=== PATIENT | female | born 1955 | race American Indian/Alaskan Native ===

== ENCOUNTER 2017-01-22 10:02 | Emergency (ER) | payer OTHER ==
[2017-01-22 11:17] LABS: Basophils % (Auto) 0.5 % (0.0-1.8); Eosinophils % (Auto) 3.5 % (0.0-4.3); Hematocrit 41.1 % (30.3-42.9); Hemoglobin 14.1 gm/dl (10.1-14.3); Mean Corpuscular HGB Conc 34 % (30-34); Mean Corpuscular Hemoglobin 31 pg (28-32); Mean Corpuscular Volume 90 fl (79-97); Platelet Count 136 K/mm3 (140-440); Red Blood Count 4.57 M/mm3 (3.65-5.03)
[2017-01-22 11:31] LABS: Anion Gap 16 mmol/L; Blood Urea Nitrogen 18 mg/dL (7-17); Calcium 9.5 mg/dL (8.4-10.2); Carbon Dioxide 26 mmol/L (22-30); Chloride 103.4 mmol/L (98-107); Glucose 124 mg/dL (65-100); Sodium 141 mmol/L (137-145)
[2017-01-22 12:49] LABS: Bacteria,Urine 1+ /HPF (Negative); Bilirubin,Urine NEG (Negative); Blood,Urine NEG (Negative); Ketones,Urine NEG (Negative); Leukocyte Esterase,Urine MOD (Negative); Nitrite,Urine NEG (Negative); Protein,Urine <15 mg/dL mg/dL (Negative); Urobilinogen,Urine < 2.0 mg/dL (<2.0)
[2017-01-22] MEDS ORDERED: REGLAN IV ONE (13:45)
[2017-01-22] MEDS ORDERED: NACL 0.9% 500 ML 500 ML IV ONE (13:45)
--- NOTE | 2017-01-22 13:47 | Emergency Department Report ---
ED General Adult HPI - General Chief complaint: Nausea/Vomiting/Diarrhea Stated complaint: NAUSEA/VOMITING Time Seen by Provider: 01/22/17 13:30 Source: patient, EMS Mode of arrival: Stretcher Limitations: No Limitations - Related Data Allergies Allergy/AdvReac Type Severity Reaction Status Date / Time meperidine HCl [From Demerol] AdvReac Itching Unverified 06/20/13 09:40 ED Review of Systems ROS: Stated complaint: NAUSEA/VOMITING Other details as noted in HPI ED Past Medical Hx - Past Medical History Previous Medical History?: Yes Hx Hypertension: Yes Hx CVA: Yes - Social History Smoking Status: Never Smoker Substance Use Type: None ED Physical Exam - General Limitations: No Limitations ED Course Vital Signs 01/22/17 01/22/17 01/22/17 10:11 10:12 10:14 Pulse Rate 71 71 Respiratory 24 13 Rate Blood Pressure 188/93 188/93 O2 Sat by Pulse 98 98 100 Oximetry 01/22/17 01/22/17 01/22/17 10:16 10:18 10:20 Pulse Rate 69 71 69 Respiratory 21 12 16 Rate Blood Pressure 188/93 188/93 188/93 O2 Sat by Pulse 98 99 100 Oximetry 01/22/17 01/22/17 01/22/17 10:22 10:24 10:26 Pulse Rate 65 65 71 Respiratory 14 12 15 Rate Blood Pressure 188/93 188/93 188/93 O2 Sat by Pulse 100 100 99 Oximetry 01/22/17 01/22/17 01/22/17 10:28 10:30 10:32 Pulse Rate 70 70 72 Respiratory 12 12 16 Rate Blood Pressure 188/93 192/98 192/98 O2 Sat by Pulse 100 96 98 Oximetry 01/22/17 01/22/17 01/22/17 10:34 10:36 10:38 Pulse Rate 72 73 74 Respiratory 15 16 14 Rate Blood Pressure 192/98 192/98 192/98 O2 Sat by Pulse 99 98 99 Oximetry 01/22/17 01/22/17 01/22/17 10:40 10:42 10:44 Pulse Rate 73 73 72 Respiratory 15 17 13 Rate Blood Pressure 192/98 192/98 192/98 O2 Sat by Pulse 99 99 99 Oximetry 01/22/17 01/22/17 01/22/17 10:46 10:48 10:50 Pulse Rate 73 73 71 Respiratory 14 16 13 Rate Blood Pressure 192/98 192/98 192/98 O2 Sat by Pulse 99 99 99 Oximetry 01/22/17 01/22/17 01/22/17 10:52 10:54 10:56 Pulse Rate 72 73 72 Respiratory 16 15 15 Rate Blood Pressure 192/98 192/98 192/98 O2 Sat by Pulse 99 99 100 Oximetry 01/22/17 01/22/17 01/22/17 10:58 11:00 11:04 Pulse Rate 77 73 Respiratory 17 13 17 Rate Blood Pressure 192/98 169/82 O2 Sat by Pulse 99 99 99 Oximetry 01/22/17 01/22/17 12:06 13:00 Pulse Rate 82 70 Respiratory 15 Rate Blood Pressure 190/95 134/76 O2 Sat by Pulse 100 97 Oximetry ED Medical Decision Making - Lab Data Result diagrams: 01/22/17 11:00 01/22/17 11:00 Critical care attestation.: If time is entered above; I have spent that time in minutes in the direct care of this critically ill patient, excluding procedure time. ED Disposition Condition: Stable Referrals: AIMEE LEYVA MD [Primary Care Provider] - 3-5 Days
--- NOTE | 2017-01-22 14:48 | Admit Criteria Form ---
Admission Criteria Documentation: DIZZINESS Clinical Indications for Admission to Inpatient Care (Place 'X' for any and all applicable criteria): Admission is indicated for ANY ONE of the following(1)(2)(3)(4): [X]I. Inpatient admission required rather than observation care (Also use Dizziness: Observation Care as appropriate) because of ANY ONE of the following: [ ]a) Hemodynamic instability that is severe or persistent [ ]b) Signs or symptoms that are severe or persistent (eg, vomit, orthostasis, inability to ambulate) [ ]c) Cardiac arrhythmias of immediate concern [ ]d) Severe (new) neurologic findings requiring inpatient care as indicated by ANY ONE of the following(6)(7): [ ]1) Cerebral bleeding, ischemia, or vasospasm(8)(9) [ ]2) Increased intracranial pressure or hydrocephalus(10)(11)(12) [ ]3) Papilledema [ ]4) Cerebral edema [ ]5) Mass effect on CT scan [ ]e) Continuous IV infusion of anticoagulation, platelet inhibitor, vasoactive, or antiarrhythmic medication [ ]f) Cerebral bleeding, hydrocephalus, or vasospasm monitoring(14) [ ]g) Increased intracranial pressure or cerebral edema monitoring [ ]h) Vomiting that is severe or persistent [X]i) Other condition, treatment or monitoring requiring inpatient admission [ ]II. A suspected etiology that requires admission for treatment [ ]III. Acute bacterial labyrinthitis [ ]IV. Cerebellar, brainstem, or cerebral ischemia or hemorrhage (5) Extended stay beyond goal length of stay may be needed for evaluating and treating a specific cause of dizziness, including(32) [ ]a) Head injury (Also use Traumatic Brain Injury, Nonsurgical Treatment guideline) [ ]b) New-onset vertebrobasilar vascular insufficiency [ ]c) Acute Meniere disease with intractable symptoms [ ]d) Cardiac arrhythmias or conduction defects [ ]e) Acute neurologic event causing dizziness [ ]f) Myocardial ischemia [ ]g) Acute bacterial labyrinthitis. [ ]h) Severe acute vestibular neuronitis The original [employer] [facility] content created by [employer] has been revised. The portions of the content which have been revised are identified through the use of italic text or in bold, and [facility] [employer] has neither reviewed nor approved the modified material. All other unmodified content is copyright [facility]. Please see references footnoted in the original [facility] edition 2016 Admission Criteria Met: Yes
--- NOTE | 2017-01-22 14:56 | Emergency Department Report ---
ED Neuro Deficit HPI - General Chief Complaint: Nausea/Vomiting/Diarrhea Stated Complaint: NAUSEA/VOMITING Time Seen by Provider: 01/22/17 13:30 Source: patient, EMS (ems notes not available at time of chart dictation), RN notes reviewed Mode of arrival: Stretcher Limitations: No Limitations - History of Present Illness Initial Comments: This is a 62-year-old female. She is previously unknown to me. Her primary care doctor is Dr. Osman Past medical history includes hypertension, stroke, to me, patient initially reports no history of stroke, does not report any history of deficits. The patient presents to the ER complaining of dizziness. The dizziness is 7, and started at 7:00 in the morning. It is described as a sensation of unsteady gait, and room spinning. It is constant, lasted for a few minutes, and is now resolved. There is no headache, neck pain, chest pain, shortness of breath. Patient endorses nausea and vomiting. Symptoms had no exacerbating or relieving factors. There is no tinnitus. There is no change in auditory acuity. -: Sudden Location: ataxia Presenting Symptoms: Absent: Weak/Paralyzed One Side, Sudden, Severe Headache, Blurred/Loss of Vision, Facial Droop/Numbness, Unable to Speak Clearly, Altered Mental Status History of same: No Place: home Severity: severe Improves With: none Worsens With: none Context: sudden onset Associated Symptoms: nausea/vomiting, vertigo. denies: chest pain - Related Data Home Medications: Previous Rx's Medication Instructions Recorded Last Taken Type Clopidogrel [Plavix] 75 mg PO QDAY #30 tablet 01/22/17 Unknown Rx Meclizine [Antivert] 25 mg PO BID PRN 14 Days 01/22/17 Unknown Rx Allergies/Adverse Reactions: Allergies Allergy/AdvReac Type Severity Reaction Status Date / Time meperidine HCl [From Demerol] AdvReac Itching Unverified 06/20/13 09:40 ED Review of Systems ROS: Stated complaint: NAUSEA/VOMITING Other details as noted in HPI Constitutional: denies: fever, malaise Eyes: denies: vision change ENT: denies: ear pain, throat pain, epistaxis Respiratory: denies: cough Cardiovascular: denies: chest pain Gastrointestinal: nausea, vomiting Genitourinary: denies: dysuria Musculoskeletal: denies: back pain Skin: denies: lesions Neurological: abnormal gait, vertigo ED Past Medical Hx - Past Medical History Previous Medical History?: Yes Hx Hypertension: Yes Hx CVA: Yes - Social History Smoking Status: Never Smoker Substance Use Type: None - Medications Home Medications: Home Medications Medication Instructions Recorded Confirmed Last Taken Type Clopidogrel [Plavix] 75 mg PO QDAY #30 tablet 01/22/17 Unknown Rx Meclizine [Antivert] 25 mg PO BID PRN 14 Days 01/22/17 Unknown Rx ED Neuro Physical Exam - General Limitations: No Limitations General appearance: alert, in no apparent distress Suspected Stroke: Yes - Head Head exam: Present: atraumatic, normocephalic - Eye Eye exam: Present: normal appearance, PERRL, EOMI. Absent: nystagmus - ENT ENT exam: Present: normal exam, normal orophraynx, mucous membranes moist, TM's normal bilaterally, normal external ear exam - Neck Neck exam: Present: normal inspection, full ROM. Absent: tenderness, meningismus - Respiratory Respiratory exam: Present: normal lung sounds bilaterally. Absent: respiratory distress, wheezes, rales, rhonchi, stridor, chest wall tenderness, accessory muscle use, decreased breath sounds, prolonged expiratory - Cardiovascular Cardiovascular Exam: Present: regular rate, normal rhythm, normal heart sounds. Absent: bradycardia, tachycardia, irregular rhythm, systolic murmur, diastolic murmur, rubs, gallop - GI/Abdominal GI/Abdominal exam: Present: soft, normal bowel sounds. Absent: distended, tenderness, guarding, rebound, rigid, pulsatile mass - Extremities Exam Extremities exam: Present: normal inspection, full ROM, normal capillary refill. Absent: tenderness, pedal edema, joint swelling, calf tenderness - Back Exam Back exam: Present: normal inspection, full ROM. Absent: tenderness, CVA tenderness (R), CVA tenderness (L), muscle spasm, paraspinal tenderness, vertebral tenderness - Neurological Exam Neurological exam: Present: alert, oriented X3, other (Extraocular movements intact. Tongue midline. No facial droop. Facial sensation intact to light touch in the V1, V2, V3 distribution bilaterally. 5 and 5 strength in 4 extremities.. Sensation is intact to light touch in 4 extremities.). Absent: normal gait (patient walks with a normal gait. She is unable to perform tandem gait.), motor sensory deficit (there is no past pointing. Negative Romberg. Normal [id number].) - NIHSS Assessment Interval: Baseline 1a. Level of Consciousness: alert 1b. LOC Questions: answers correctly 1c. LOC Commands: performs tasks correctly 2. Best Gaze: normal 3. Visual: no visual loss 4. Facial Palsy: normal symmetrical movement 5b. Motor Arm Right: no drift 5a. Motor Arm Left: no drift 6a. Motor Leg Left: no drift 6b. Motor Leg Right: no drift 7. Limb Ataxia: absent 8. Sensory: normal 9. Best Language: no aphasia 10. Dysarthria: normal 11. Extinction/Inattention: no abnormality Total Score: 0 Stroke Severity: No Stroke Symptoms - Psychiatric Psychiatric exam: Present: normal affect, normal mood - Skin Skin exam: Present: warm, dry, intact, normal color. Absent: rash ED Course Vital Signs 01/22/17 01/22/17 01/22/17 10:11 10:12 10:14 Temperature Pulse Rate 71 71 Respiratory 24 13 Rate Blood Pressure 188/93 188/93 O2 Sat by Pulse 98 98 100 Oximetry 01/22/17 01/22/17 01/22/17 10:16 10:18 10:20 Temperature Pulse Rate 69 71 69 Respiratory 21 12 16 Rate Blood Pressure 188/93 188/93 188/93 O2 Sat by Pulse 98 99 100 Oximetry 01/22/17 01/22/17 01/22/17 10:22 10:24 10:26 Temperature Pulse Rate 65 65 71 Respiratory 14 12 15 Rate Blood Pressure 188/93 188/93 188/93 O2 Sat by Pulse 100 100 99 Oximetry 01/22/17 01/22/17 01/22/17 10:28 10:30 10:32 Temperature Pulse Rate 70 70 72 Respiratory 12 12 16 Rate Blood Pressure 188/93 192/98 192/98 O2 Sat by Pulse 100 96 98 Oximetry 01/22/17 01/22/17 01/22/17 10:34 10:36 10:38 Temperature Pulse Rate 72 73 74 Respiratory 15 16 14 Rate Blood Pressure 192/98 192/98 192/98 O2 Sat by Pulse 99 98 99 Oximetry 01/22/17 01/22/17 01/22/17 10:40 10:42 10:44 Temperature Pulse Rate 73 73 72 Respiratory 15 17 13 Rate Blood Pressure 192/98 192/98 192/98 O2 Sat by Pulse 99 99 99 Oximetry 01/22/17 01/22/17 01/22/17 10:46 10:48 10:50 Temperature Pulse Rate 73 73 71 Respiratory 14 16 13 Rate Blood Pressure 192/98 192/98 192/98 O2 Sat by Pulse 99 99 99 Oximetry 01/22/17 01/22/17 01/22/17 10:52 10:54 10:56 Temperature Pulse Rate 72 73 72 Respiratory 16 15 15 Rate Blood Pressure 192/98 192/98 192/98 O2 Sat by Pulse 99 99 100 Oximetry 01/22/17 01/22/17 01/22/17 10:58 11:00 11:04 Temperature Pulse Rate 77 73 Respiratory 17 13 17 Rate Blood Pressure 192/98 169/82 O2 Sat by Pulse 99 99 99 Oximetry 01/22/17 01/22/17 01/22/17 12:06 13:00 13:48 Temperature 98.3 F Pulse Rate 82 70 Respiratory 15 Rate Blood Pressure 190/95 134/76 O2 Sat by Pulse 100 97 Oximetry 01/22/17 01/22/17 01/22/17 14:00 15:01 15:16 Temperature Pulse Rate 83 79 77 Respiratory 15 14 15 Rate Blood Pressure 134/76 153/78 143/72 O2 Sat by Pulse 94 100 Oximetry 01/22/17 01/22/17 01/22/17 15:30 15:46 16:36 Temperature Pulse Rate 72 73 86 Respiratory 14 13 17 Rate Blood Pressure 151/71 153/78 167/87 O2 Sat by Pulse 98 97 100 Oximetry 01/22/17 01/22/17 01/22/17 16:46 17:00 17:16 Temperature Pulse Rate 86 84 83 Respiratory 17 15 14 Rate Blood Pressure 167/87 162/86 151/71 O2 Sat by Pulse 99 96 98 Oximetry 01/22/17 17:30 Temperature Pulse Rate 80 Respiratory 14 Rate Blood Pressure 174/97 O2 Sat by Pulse 98 Oximetry - Reevaluation(s) Reevaluation #1: 01/22/17 14:56 differential diagnosis: Vertigo, transient ischemic attack, CVA Assessment and plan: 62-year-old female who presented with sudden onset of sensation of room spinning and subjective unsteady gait. She is initially markedly hypertensive. Upon arrival to the ER, her symptoms have essentially resolved. She has a GCS of 15, with an NIH score of 0. She is able to walk with a [id number] gait within normal limits, but has difficulty with tolerating and performing a tandem gait. This is a subtle finding, but it does not score on the NIH score, and she is not a TPA candidate at this time. Patient will likely be admitted for further evaluation and management for possible subacute CVA. 01/24/17 05:41 Reevaluation #2: 01/22/17 20:09 CT angiogram was negative. Case is presented to the Hospital physician, Dr. Murphy, who accepts the patient. - Lab Data Result diagrams: 01/22/17 11:00 01/22/17 11:00 Lab Results 01/22/17 01/22/17 01/22/17 Range/Units 11:00 11:00 12:11 WBC 5.0 (4.5-11.0) K/mm3 RBC 4.57 (3.65-5.03) M/mm3 Hgb 14.1 (10.1-14.3) gm/dl Hct 41.1 (30.3-42.9) % MCV 90 (79-97) fl MCH 31 (28-32) pg MCHC 34 (30-34) % RDW 15.0 (13.2-15.2) % Plt Count 136 L (140-440) K/mm3 Lymph % (Auto) 13.7 (13.4-35.0) % Amelia % (Auto) 8.9 H (0.0-7.3) % Eos % (Auto) 3.5 (0.0-4.3) % Baso % (Auto) 0.5 (0.0-1.8) % Lymph # 0.7 L (1.2-5.4) K/mm3 Amelia # 0.5 (0.0-0.8) K/mm3 Eos # 0.2 (0.0-0.4) K/mm3 Baso # 0.0 (0.0-0.1) K/mm3 Seg Neutrophils % 73.4 H (40.0-70.0) % Seg Neutrophils # 3.7 (1.8-7.7) K/mm3 Sodium 141 (137-145) mmol/L Potassium 4.0 (3.6-5.0) mmol/L Chloride 103.4 (98-107) mmol/L Carbon Dioxide 26 (22-30) mmol/L Anion Gap 16 mmol/L BUN 18 H (7-17) mg/dL Creatinine 0.8 (0.7-1.2) mg/dL Estimated GFR > 60 ml/min BUN/Creatinine Ratio 22.50 % Glucose 124 H (65-100) mg/dL Calcium 9.5 (8.4-10.2) mg/dL Troponin T (0.00-0.029) ng/mL Urine Color Straw (Yellow) Urine Turbidity Clear (Clear) Urine pH 7.0 (5.0-7.0) Ur Specific Corinna 1.009 (1.003-1.030) Urine Protein <15 mg/dl (Negative) mg/dL Urine Glucose (UA) Neg (Negative) mg/dL Urine Ketones Neg (Negative) mg/dL Urine Blood Neg (Negative) Urine Nitrite Neg (Negative) Urine Bilirubin Neg (Negative) Urine Urobilinogen < 2.0 (<2.0) mg/dL Ur Leukocyte Esterase Mod (Negative) Urine WBC (Auto) 5.0 (0.0-6.0) /HPF Urine RBC (Auto) 2.0 (0.0-6.0) /HPF U Epithel Cells (Auto) 1.0 (0-13.0) /HPF Urine Bacteria (Auto) 1+ (Negative) /HPF 01/22/17 Range/Units Unknown WBC (4.5-11.0) K/mm3 RBC (3.65-5.03) M/mm3 Hgb (10.1-14.3) gm/dl Hct (30.3-42.9) % MCV (79-97) fl MCH (28-32) pg MCHC (30-34) % RDW (13.2-15.2) % Plt Count (140-440) K/mm3 Lymph % (Auto) (13.4-35.0) % Amelia % (Auto) (0.0-7.3) % Eos % (Auto) (0.0-4.3) % Baso % (Auto) (0.0-1.8) % Lymph # (1.2-5.4) K/mm3 Amelia # (0.0-0.8) K/mm3 Eos # (0.0-0.4) K/mm3 Baso # (0.0-0.1) K/mm3 Seg Neutrophils % (40.0-70.0) % Seg Neutrophils # (1.8-7.7) K/mm3 Sodium (137-145) mmol/L Potassium (3.6-5.0) mmol/L Chloride (98-107) mmol/L Carbon Dioxide (22-30) mmol/L Anion Gap mmol/L BUN (7-17) mg/dL Creatinine (0.7-1.2) mg/dL Estimated GFR ml/min BUN/Creatinine Ratio % Glucose (65-100) mg/dL Calcium (8.4-10.2) mg/dL Troponin T < 0.010 (0.00-0.029) ng/mL Urine Color (Yellow) Urine Turbidity (Clear) Urine pH (5.0-7.0) Ur Specific Corinna (1.003-1.030) Urine Protein (Negative) mg/dL Urine Glucose (UA) (Negative) mg/dL Urine Ketones (Negative) mg/dL Urine Blood (Negative) Urine Nitrite (Negative) Urine Bilirubin (Negative) Urine Urobilinogen (<2.0) mg/dL Ur Leukocyte Esterase (Negative) Urine WBC (Auto) (0.0-6.0) /HPF Urine RBC (Auto) (0.0-6.0) /HPF U Epithel Cells (Auto) (0-13.0) /HPF Urine Bacteria (Auto) (Negative) /HPF 01/22/17 14:58 Normal sinus, 73 bpm, normal axis, prolonged QTC at 442 ms, not morphologically consistent with STEMI, borderline left ventricular hypertrophy. - Radiology Data Radiology results: report reviewed CT scan of the brain is negative for acute disease. - Core Measures Measure Exclusions: not indicated - Thrombolytic Inclusion/Exclusion Thrombolytic Contraindications: Rapidily Improving s/s Critical care attestation.: If time is entered above; I have spent that time in minutes in the direct care of this critically ill patient, excluding procedure time. ED Disposition Clinical Impression: Dizziness Disposition: OP ADMITTED IP TO THIS HOSP Is pt being admited?: Yes Does the pt Need Aspirin: Yes Condition: Good Instructions: Dizziness (ED) Prescriptions: Clopidogrel [Plavix] 75 mg PO QDAY #30 tablet Meclizine [Antivert] 25 mg PO BID PRN 14 Days PRN Reason: Vertigo Referrals: PRIMARY CARE,MD [Primary Care Provider] - 3-5 Days
--- NOTE | 2017-01-22 15:48 | Cat Scan Report ---
CT HEAD WITHOUT CONTRAST: HISTORY: Unsteady gait, syncope. Serial contiguous axial images were obtained through the cranium. Intravenous contrast material was not administered. The ventricles are normal in size and appearance. There is no mass effect or midline shift. No areas of abnormally increased or decreased attenuation are seen. No mass lesion is seen. The mastoid air cells and visualized portions of the sinuses are normal. IMPRESSION: Cranial CT scan within normal limits.
--- NOTE | 2017-01-22 17:22 | Cat Scan Report ---
FINAL REPORT PROCEDURE: CT ANGIO NECK TECHNIQUE: Computerized tomographic angiography of the neck was performed after the IV injection of iodinated nonionic contrast including image processing. The image data was postprocessed using 2-dimensional multiplanar reformatted (MPR) and 3-dimensional (MIP and/or volume rendered) techniques. HISTORY: tia COMPARISON: No prior studies are available for comparison. Note: Assessment of carotid artery stenosis is based on measurement of the distal internal carotid artery diameter as the denominator for stenosis calculations and the [place] Symptomatic Carotid Endarterectomy Trial (NASCET) stenosis criteria . CPT 3100F FINDINGS: Small focus of subpleural fat is seen in the right lung apex. Vertebral arteries are codominant there is tortuosity of the proximal and distal vertebral arteries which could be from chronic hypertension but may be normal variant. No plaque or stenosis is seen in the vertebral arteries. No stenosis is seen in the CCAs or ICAs in the neck. IMPRESSION: No stenosis is seen in the vertebral or carotid arteries in the neck.
--- NOTE | 2017-01-22 17:26 | Cat Scan Report ---
FINAL REPORT PROCEDURE: CT ANGIO HEAD TECHNIQUE: Computerized tomographic angiography of the head was performed after the IV injection of iodinated nonionic contrast including image processing. The image data was postprocessed using 2-dimensional multiplanar reformatted (MPR) and 3-dimensional (MIP and/or volume rendered) techniques. HISTORY: tia COMPARISON: No prior studies are available for comparison. FINDINGS: There is tortuosity of the distal vertebral arteries and basilar artery which may be from chronic hypertension. Bilateral posterior communicating arteries are present and primarily supplying the CREMATOR distribution. There are small P1 segments suspected. Anterior communicating artery is seen. No intracranial arterial stenosis or aneurysm is seen. IMPRESSION: No intracranial arterial stenosis or aneurysm is seen.
--- NOTE | 2017-01-22 17:34 | Event Note ---
Date: 01/22/17 +Assesed for dizziness. No Signs of sroke/Cva/TIA. Able to walk. Normal neuro exam. Will d/c home Acute Labrynthitis F/u with Dr Raya D/c on PLavix 75 mg po qd Had CVA in past
[2017-01-22 17:35] VITALS: BP 174/97
[2017-01-22] MEDS ORDERED: BABY ASPIRIN PO ONE (21:00)
== END 2017-01-22 17:55 | disposition admitted as inpatient to this hospital (09) ==
LOC: ED 10:02
DX: R42 Dizziness and giddiness (principal); I10 Essential (primary) hypertension; Z86.73 Personal history of transient ischemic attack (TIA), and cerebral infarction without residual deficits; Z88.8 Allergy status to other drugs, medicaments and biological substances
CPT/HCPCS: 36415; 70450; 70496; 70498; 80048; 81001; 84484; 85025; 93005; 93010; 96361; 96374; 99285; J2765; J7040; Q9967

== ENCOUNTER 2019-08-29 12:38 | Outpatient (CLI) | payer OTHER ==
--- NOTE | 2019-09-01 15:13 | Mammography Report ---
DIGITAL SCREENING MAMMOGRAM WITH CAD, 08/29/2019 INDICATION: Routine screening mammography. TECHNIQUE: Digital bilateral 2D mammography was obtained in the craniocaudal and mediolateral obliq ue projections. This examination was interpreted with the benefit of Computer-Aided Detection analysi s. COMPARISON: 08/20/2018 FINDINGS: Breast Density: The breasts are heterogeneously dense, which may obscure small masses. There is no evidence of dominant mass, suspicious calcifications or architectural distortion in eithe r breast. IMPRESSION: No mammographic evidence of malignancy. Follow up recommendation: Routine yearly BI-RADS Category 1: Negative. A "normal" or negative report should not discourage follow up or biopsy of a clinically significant f inding. A written summary of these findings will be mailed to the patient. The patient will be entered into a mammography reporting system which will generate a reminder letter for the patient's next appointmen t at the appropriate interval. The [employer] recommends yearly mammograms starting at age 40 and continuing as l zay as a woman is in good health. Breast MRI is recommended for women with an approximate 20-25% or greater lifetime risk of breast cancer, including women with a strong family history of breast or ova ninoska cancer or who have been treated for Hodgkin's disease. Signer Name: Miller Bradley MD Signed: 09/01/2019 3:08 PM Workstation Name: [id number]
== END 2019-08-29 12:39 | disposition home or self-care (01) ==
LOC: SPVWC 12:38
PROVIDERS: ATTEND Obstetrics & Gynecology Gynecology
DX: Z12.31 Encounter for screening mammogram for malignant neoplasm of breast (principal)
CPT/HCPCS: 77067

== ENCOUNTER 2020-09-13 10:14 | Outpatient (CLI) | payer MEDICARE, OTHER ==
--- NOTE | 2020-09-13 13:52 | Mammography Report ---
DIGITAL SCREENING MAMMOGRAM WITH CAD, 09/13/2020 CLINICAL INFORMATION / INDICATION: Routine screening mammography. TECHNIQUE: Digital bilateral 2D mammography was obtained in the craniocaudal and mediolateral obliqu e projections. This examination was interpreted with the benefit of Computer-Aided Detection analysis . COMPARISON: 08/29/2019, 09/12/2018, 08/20/2018 FINDINGS: Breast Density: The breasts are heterogeneously dense, which may obscure small masses. No dominant mass, suspicious calcifications, or architectural distortion in either breast. IMPRESSION: No mammographic evidence of malignancy. Follow up recommendation: Routine yearly BI-RADS Category 1: Negative. A "normal" or negative report should not discourage follow up or biopsy of a clinically significant f inding. A written summary of these findings will be mailed to the patient. The patient will be entered into a mammography reporting system which will generate a reminder letter for the patient's next appointmen t at the appropriate interval. The [employer] recommends yearly mammograms starting at age 40 and continuing as l zay as a woman is in good health. Breast MRI is recommended for women with an approximate 20-25% or greater lifetime risk of breast cancer, including women with a strong family history of breast or ova ninoska cancer or who have been treated for Hodgkin's disease. Signer Name: William Becerril MD Signed: 09/13/2020 1:48 PM Workstation Name: [id number]
--- NOTE | 2020-09-14 07:29 | Mammography Report ---
DEXA BONE DENSITY SCAN INDICATION: OSTEOPOROSIS. COMPARISON: 07/04/2016 LUMBAR SPINE (L1-L4): Bone mineral density (BMD) is 0.809 g/cm2. T-score is -2.2 (standard deviations of Young Adult mean). Z-score is -1.1 (standard deviations of Age Matched mean). There has been a 3.1% increase in bone mineral density in this region since 2016. LEFT FEMORAL NECK: Bone mineral density (BMD) is 0.565 g/cm2. T-score is -2.6 (standard deviations of Young Adult mean). Z-score is -1.4 (standard deviations of Age Matched mean). There has been a 8.7% decrease in bone mineral density in this region since 2016 IMPRESSION: 1. WHO Classification: Osteoporosis. Fracture Risk: High. Signer Name: Salo Rico MD Signed: 09/14/2020 7:25 AM Workstation Name: [email or web address]
== END 2020-09-13 10:15 | disposition home or self-care (01) ==
LOC: MAMMO 10:14
PROVIDERS: ATTEND Obstetrics & Gynecology Gynecology
DX: Z12.31 Encounter for screening mammogram for malignant neoplasm of breast (principal); M81.0 Age-related osteoporosis without current pathological fracture
CPT/HCPCS: 77067; 77080

== ENCOUNTER 2021-10-04 11:00 | Outpatient (CLI) | payer MEDICARE, OTHER ==
--- NOTE | 2021-10-04 16:06 | Mammography Report ---
DIGITAL SCREENING MAMMOGRAM WITH CAD, 10/04/2021 CLINICAL INFORMATION / INDICATION: Routine screening TECHNIQUE: Digital bilateral 2D mammography was obtained in the craniocaudal and mediolateral obliqu e projections. This examination was interpreted with the benefit of Computer-Aided Detection analysis . COMPARISON: 09/13/2020 FINDINGS: Breast Density: The breasts are heterogeneously dense, which may obscure small masses. No dominant mass, suspicious calcifications, or architectural distortion in either breast. IMPRESSION: No mammographic evidence of malignancy. Follow up recommendation: Routine yearly BI-RADS Category 1: NEGATIVE A "normal" or negative report should not discourage follow up or biopsy of a clinically significant f inding. A written summary of these findings will be mailed to the patient. The patient will be entered into a mammography reporting system which will generate a reminder letter for the patient's next appointmen t at the appropriate interval. The [employer] recommends yearly mammograms starting at age 40 and continuing as l zay as a woman is in good health. Breast MRI is recommended for women with an approximate 20-25% or greater lifetime risk of breast cancer, including women with a strong family history of breast or ova ninoska cancer or who have been treated for Hodgkin's disease. Signer Name: Russell Osborn MD Signed: 10/04/2021 4:02 PM Workstation Name: [email or web address]
== END 2021-10-04 11:01 | disposition home or self-care (01) ==
LOC: MAMMO 11:00
PROVIDERS: ATTEND Obstetrics & Gynecology Gynecology
DX: Z12.31 Encounter for screening mammogram for malignant neoplasm of breast (principal)
CPT/HCPCS: 77067